=== PATIENT | female | born 1950 | race Asian ===

== ENCOUNTER 2017-12-08 18:29 | Emergency (ER) | payer OTHER ==
[~2017-12-08] VITALS: Ht 162.6 cm; Wt 72.6 kg
--- NOTE | 2017-12-08 18:36 | NUR ---
PT BIBRA TO ER BED 10. WAS AT A CLINIC FOR R SHOULDER PAIN WHEN SHE WAS NOTED TO BE TACHYCARDIC W/ RATE OF 140. PT DENIES ANY CHEST PAIN EMERGENCY [facility] EMT. STILL C/O 07/11 R SHOULDER PAIN. GOWNED AND PLACED ON MONITOR. SINUS TACH OTHERWISE STABLE VITALS. AWAITING MD [facility]HE[facility]RI[facility].
--- NOTE | 2017-12-08 19:15 | NUR ---
DR NUNES AT BEDSIDE FOR EVAL.
[2017-12-08] MEDS ORDERED: IBUPROFEN 600 MG TABLET PO ONE ×2 (19:30→19:34)
[2017-12-08 19:39] LABS: BASOPHILS # (AUTO) 0.1 /CMM (0.0-0.2); BASOPHILS % (AUTO) 0.7 % (0.0-2.0); EOSINOPHILS # (AUTO) 0.1 /CMM (0.0-0.7); EOSINOPHILS % (AUTO) 1.5 % (0.0-6.0); HEMATOCRIT 39 % (33-45); HEMOGLOBIN 13.3 g/dL (11.5-14.8); LYMPHOCYTES # (AUTO) 1.8 /CMM (0.8-4.8); LYMPHOCYTES % (AUTO) 19.3 % (20.0-44.0); MEAN CORPUSCULAR HEMOGLOBIN 29 PG (26.0-33.0); MEAN CORPUSCULAR HGB CONC 34 g/dl (31.0-36.0); MEAN CORPUSCULAR VOLUME 85 fL (82-100); MONOCYTES # (AUTO) 0.7 /CMM (0.1-1.30); NEUTROPHILS # (AUTO) 6.6 /CMM (1.8-8.9); NEUTROPHILS % (AUTO) 71.5 % (43.0-81.0); PLATELET COUNT (AUTO) 374 /CMM (150-450); RDW COEFFICIENT OF VARIATION 12.5 (11.5-15.0); RED BLOOD CELL COUNT(AUTO) 4.61 MIL/uL (4.0-5.2); WHITE BLOOD COUNT (AUTO) 9.3 K/uL (4.3-11.0)
[2017-12-08 20:00] LABS: CARBON DIOXIDE 29 mmol/L (21-32); CHLORIDE 103 mmol/L (98-107); CREATININE 0.6 mg/dL (0.6-1.3); GLUCOSE 154 mg/dL (74-106); POTASSIUM 3.4 mmol/L (3.5-5.1); SODIUM SERUM 139 mmol/L (136-145); UREA NITROGEN, BLOOD 13 mg/dL (7-18)
[2017-12-08 20:09] LABS: TROPONIN I < 0.017 ng/mL (0.00-0.056)
[2017-12-08 20:36] LABS: INR 0.95 (0.85-1.15)
--- NOTE | 2017-12-08 21:00 | NUR ---
Patient discharged to home in stable condition. Written and verbal after care instructions given. Patient verbalizes understanding of instruction.
[2017-12-08 21:02] VITALS: BP 140/76
== END 2017-12-08 21:04 | disposition home or self-care (01) ==
LOC: ER 18:40
DX: M75.91 Shoulder lesion, unspecified, right shoulder (principal); R00.0 Tachycardia, unspecified; E11.9 Type 2 diabetes mellitus without complications
CPT/HCPCS: 36415; 71045; 80048; 84484; 85025; 85730; 93005; 99285; A4606; Z7610